=== PATIENT | male | born 1980 | race Asian ===

== ENCOUNTER → 2024-04-03 10:57 | Outpatient (REF) | payer BC, SELFPAY | LOC: DHSLP 10:57 | PROVIDERS: ATTENDING PHYSICIAN Internal Medicine; FAMILY PHYSICIAN Physician Assistant Medical | DX: G47.19 Other hypersomnia (principal); R06.83 Snoring | CPT/HCPCS: 95800 ==

== ENCOUNTER → 2024-05-07 16:22 | Outpatient (REF) | payer BC, SELFPAY | LOC: HWRAD 16:22 | PROVIDERS: ATTENDING PHYSICIAN Physician Assistant Medical; FAMILY PHYSICIAN Physician Assistant Medical | DX: R05.3 Chronic cough (principal) | CPT/HCPCS: 71046 ==